=== PATIENT | female | born 1980 | race Hispanic/Latino ===

== ENCOUNTER 2021-12-31 08:14 | Day surgery (SDC) | payer OTHER ==
[2021-12-29 11:32] LABS: BASOPHILS % (AUTO) 0.6 % (0.0-5.0); EOSINOPHILS % (AUTO) 4.4 % (0.0-8.0); HEMATOCRIT 34.2 % (36-48); LYMPHOCYTES % (AUTO) 23.7 % (21.0-51.0); MEAN CORPUSCULAR HEMOGLOBIN 27.6 pg (27.0-33.0); MEAN CORPUSCULAR HGB CONC 32.5 g/dL (32.0-36.0); MEAN CORPUSCULAR VOLUME 85.1 fL (79-99); MONOCYTES % (AUTO) 6.6 % (3.0-13.0); NEUTROPHILS % (AUTO) 64.5 % (40.0-77.0); PLATELET COUNT (AUTO) 248 K/uL (130-400); RED BLOOD CELL COUNT(AUTO) 4.02 MIL/uL (4.00-5.50); RED CELL DISTRIBUTION WIDTH 13.4 % (11.0-15.5); WHITE BLOOD COUNT (AUTO) 6.3 K/uL (4.8-10.8)
[2021-12-29 11:35] LABS: CREATININE 0.6 mg/dL (0.5-1.5); POTASSIUM 4.3 mmol/L (3.5-5.1)
[2021-12-29 12:09] LABS: INR 0.93 (0.85-1.15); PROTHROMBIN TIME 9.6 SEC (9.6-11.6)
[2021-12-29 12:11] LABS: PARTIAL THROMBOPLASTIN TIME 24.5 SEC (26.3-35.5)
[2021-12-30 10:54] VITALS: BP 108/64
[2021-12-31] VITALS (18 sets, daily range): BP systolic 105–147; BP diastolic 70–88
[~2021-12-31] VITALS: Ht 160 cm; Wt 81.5 kg
[~2021-12-31 08:14] MED LIST: BUPIVACAINE/PF 0.5% 30ML VIAL ONE; CEFAZOLIN SODIUM 1 GM VIAL IVPB SCH
[2021-12-31] MEDS ORDERED: LACTATED RINGERS 1000ML 1,000 ML IV ONE (08:44)
[2021-12-31] MEDS ORDERED: CEFAZOLIN SODIUM 2 GM VIAL IVPB ONE (09:49)
[2021-12-31] MEDS ORDERED: DEXAMETHASONE SOD PHOSPHATE 10MG/ML 1ML VIAL ONE (09:53)
[2021-12-31] MEDS ORDERED: LIDOCAINE PF 100MG/5ML (2%) SYRINGE 5ML ONE (09:53)
[2021-12-31] MEDS ORDERED: NEOSTIGMINE 5MG/5ML SYR IV ONE (09:53)
[2021-12-31] MEDS ORDERED: SUCCINYLCHOLINE 200MG/10ML SYR ONE (09:53)
[2021-12-31] MEDS ORDERED: ONDANSETRON 4MG INJ ONE ×2 (09:53→11:20)
[2021-12-31] MEDS ORDERED: ROCURONIUM 10MG/1ML SYR 10 MG/ML ML ONE (09:53)
[2021-12-31] MEDS ORDERED: MIDAZOLAM HCL 1 MG/ML 2ML VIAL ONE (09:53)
[2021-12-31] MEDS ORDERED: GLYCOPYRROLATE 1 MG/5 ML SYRINGE ONE (09:53)
[2021-12-31] MEDS ORDERED: PROPOFOL 10 MG/ML 20ML VIAL IV ONE (09:53)
[2021-12-31] MEDS ORDERED: FENTANYL CITRATE PF 50 MCG/1 ML 5ML AMP IV ONE (10:16)
[2021-12-31] MEDS ORDERED: KETOROLAC 30MG VIAL (30MG/ML) ONE ×2 (10:28→11:20)
[2021-12-31] MEDS ORDERED: MEPERIDINE-PF 25 MG/ML SYG ONE ×2 (10:44→11:21)
[2021-12-31] MEDS ORDERED: FENTANYL CITRATE PF 50 MCG/1 ML 2ML VIAL ONE (10:48)
[2021-12-31] MEDS ORDERED: BUPIVACAINE/PF 0.5% 30ML VIAL INJ ONE (11:00)
== END 2021-12-31 13:30 | disposition home or self-care (01) ==
LOC: DAH 08:14
PROVIDERS: ATTEND Surgery
DX: K80.64 Calculus of gallbladder and bile duct with chronic cholecystitis without obstruction (principal); K82.8 Other specified diseases of gallbladder; Z20.822 Contact with and (suspected) exposure to COVID-19; Z79.01 Long term (current) use of anticoagulants; Z98.891 History of uterine scar from previous surgery; Z82.49 Family history of ischemic heart disease and other diseases of the circulatory system
CPT/HCPCS: 80048; 84703; 85025; 85610; 85730; 87426; 36415; 71045; 93005; 47562; A6260; A4663; J7030; J7120; J3010 ×2; J0690 ×2; J0330; J3490 ×3; J1100; J2710; J2001; J2250; J2704; J2405 ×2; J1885; J2175 ×2; G0168; C1769 ×3; A4649 ×2; A4215; A4223; A4222; A4221; A4600